=== PATIENT | female | born 1975 | race Caucasian/White ===

== ENCOUNTER 2021-08-30 21:44 | Emergency (ER) | payer MEDICAID, MEDICARE ==
[~2021-08-30] VITALS: Ht 157.5 cm; Wt 95.3 kg
--- NOTE | 2021-08-30 21:44 | NUR ---
PT [facility]. TAKEN TO BED 10 Addendum: 08/31/21 at 0457 by SUNDAR PT [facility].
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
[2021-08-30 21:46] VITALS: BP 136/74
--- NOTE | 2021-08-30 22:45 | NUR ---
Dr. Hummel examining patient.
--- NOTE | 2021-08-30 22:45 | NUR ---
DR GIBBS AT BEDSIDE FOR EXAM
[2021-08-30] MEDS: HYDROcodone/APAP 5/325 MG 1 TAB TAB PO ONE (23:47)
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
[2021-08-31] MEDS: HYDROcodone/APAP 5/325 MG 1 TAB TAB PO ONE (00:01)
[2021-08-31] MEDS ORDERED: IBUPROFEN 600 MG TAB ONE (00:04)
[2021-08-31 02:00] VITALS: BP 128/64
[2021-08-31] MEDS ORDERED: IBUPROFEN 600 MG TAB PO ONE (02:40)
--- NOTE | 2021-08-31 02:47 | NUR ---
AMBULATED TO BR WITH MINIMAL ASSIST
--- NOTE | 2021-08-31 03:32 | NUR ---
Patient discharged with v/s stable. Written and verbal after care instructions given and explained. Patient verbalized understanding. Ambulatory with steady gait. All questions addressed prior to discharge. Advised to follow up with PMD.
== END 2021-08-31 03:32 | disposition home or self-care (01) ==
LOC: MED 21:44
DX: M54.9 Dorsalgia, unspecified (principal); M25.511 Pain in right shoulder; M54.2 Cervicalgia; Z88.8 Allergy status to other drugs, medicaments and biological substances; V89.2XXA Person injured in unspecified motor-vehicle accident, traffic, initial encounter; Y93.89 Activity, other specified; Y92.411 Interstate highway as the place of occurrence of the external cause; Y99.8 Other external cause status
CPT/HCPCS: 70450; 71045; 72125; 73030; 99284; Q0092